=== PATIENT | female | born 1950 | race Two or more races ===

== ENCOUNTER 2017-10-28 20:06 | Emergency (ER) | payer MEDICARE ==
[~2017-10-28] VITALS: Ht 160 cm; Wt 62.6 kg
[2017-10-28] MEDS ORDERED: CALCIUM500 M3 PO (20:16)
[2017-10-28] MEDS ORDERED: VITAMIN D1000 UNI1 ORAL (20:16)
[2017-10-28 20:44] VITALS: BP 110/65
--- NOTE | 2017-10-28 20:52 | Emergency Room Report ---
History of Present Illness General Chief Complaint: Palpitations Source: Patient (Isidoro Ravi M.D.) Present Illness HPI 67-year-old female, no significant past medical history, presenting with left lower extremity pain, for the last 2 weeks, worse in the last 2 days. Denies any trauma. Denies any chest pain or shortness of breath. Denies any history of DVT or PE (Isidoro Ravi M.D.) Allergies: Coded Allergies: No Known Allergies (Unverified , 10/28/17) Patient History Past Medical History: see triage record Past Surgical History: none Pertinent Family History: none Last Menstrual Period: years Now: No : 2 Para: 2 Reviewed Nursing Documentation: PMH: Agreed; PSxH: Agreed (Isidoro Ravi M.D. ) Nursing Documentation-PMH Past Medical History: No History, Except For Hx Cancer: Yes - breast CA left side with mastectomy (Isidoro Ravi M.D.) Review of Systems All Other Systems: negative except mentioned in HPI (Isidoro Ravi M.D.) Physical Exam Vital Signs Date Time Temp Pulse Resp B/P (MAP) Pulse Ox O2 Delivery O2 Flow Rate FiO2 10/28/17 20:10 97.7 66 18 132/61 96 Room Air 97.7 (Isidoro Ravi M.D.) Medical Decision Making Diagnostic Impression: Primary Impression: Acute deep vein thrombosis (DVT) of left peroneal vein ER Course 67-year-old female with left lower EXT pain for 2 weeks Also with intermittent palpitations however a symptomatically at this time DDX: Rule out DVT, no signs of trauma, full range of motion, not concerned with any fracture Low suspicion for ACS, not tachycardic not hypoxic, asymptomatic at this time so low suspicion for PE Plan: Obtain labs, ua, ucx, CXR, EKG Venous study for rule out DVT ER course: Patient has remained stable during ED stay. Disposition: Please note that this Emergency Department Report was dictated using [employer] machine operator technology software, occasionally this can lead to erroneous entry secondary to interpretation by the dictation equipment EKG Diagnostic Results EP Interpretation: Yes Rate: normal Rhythm: NSR ST Segments: T-wave inversion V2 ASA given to patient: No Rhythm Strip EP Interpretation: Yes Rate: 70 Rhythm: NSR, no PVCs, no ectopy Chest X-ray CXR: Ordered: Yes 1 view Indication: Chest pain EP interpretation: Yes Interpretation: No consolidation, no effusion, no PTX, no acute cardiopulmonary disease Impression: No acute disease Electronically signed by Isidoro Ravi MD Laboratory Tests Test 10/28/17 20:35 10/28/17 21:05 White Blood Count 8.0 K/UL (4.8-10.8) Red Blood Count 4.46 M/UL (4.20-5.40) Hemoglobin 13.7 G/DL (12.0-16.0) Hematocrit 41.0 % (37.0-47.0) Mean Corpuscular Volume 92 FL (80-99) Mean Corpuscular Hemoglobin 30.8 PG (27.0-31.0) Mean Corpuscular Hemoglobin Concent 33.5 G/DL (32.0-36.0) Red Cell Distribution Width 11.3 % (11.6-14.8) L Platelet Count 218 K/UL (150-450) Mean Platelet Volume 7.8 FL (6.5-10.1) Neutrophils (%) (Auto) 47.0 % (45.0-75.0) Lymphocytes (%) (Auto) 40.9 % (20.0-45.0) Monocytes (%) (Auto) 7.1 % (1.0-10.0) Eosinophils (%) (Auto) 3.6 % (0.0-3.0) H Basophils (%) (Auto) 1.3 % (0.0-2.0) Sodium Level 138 MMOL/L (136-145) Potassium Level 3.9 MMOL/L (3.5-5.1) Chloride Level 104 MMOL/L (98-107) Carbon Dioxide Level 24 MMOL/L (21-32) Anion Gap 10 mmol/L (5-15) Blood Urea Nitrogen 26 mg/dL (7-18) H Creatinine 0.8 MG/DL (0.55-1.30) Estimate Glomerular Filtration Rate > 60 mL/min (>60) Glucose Level 157 MG/DL (74-106) H Calcium Level 9.1 MG/DL (8.5-10.1) Total Bilirubin 0.4 MG/DL (0.2-1.0) Aspartate Amino Transferase (AST) 16 U/L (15-37) Alanine Aminotransferase (ALT) 28 U/L (12-78) Alkaline Phosphatase 71 U/L (46-116) Troponin I 0.000 ng/mL (0.000-0.056) Pro-B-Type Natriuretic Peptide 48 pg/mL (0-125) Total Protein 7.4 G/DL (6.4-8.2) Albumin 3.9 G/DL (3.4-5.0) Globulin 3.5 g/dL Albumin/Globulin Ratio 1.1 (1.0-2.7) Urine Color Pale yellow Urine Appearance Clear Urine pH 5 (4.5-8.0) Urine Specific Garber 1.020 (1.005-1.035) Urine Protein Negative (NEGATIVE) Urine Glucose (UA) Negative (NEGATIVE) Urine Ketones Negative (NEGATIVE) Urine Occult Blood Negative (NEGATIVE) Urine Nitrite Negative (NEGATIVE) Urine Bilirubin Negative (NEGATIVE) Urine Urobilinogen Normal MG/DL (0.0-1.0) Urine Leukocyte Esterase 3+ (NEGATIVE) H Urine RBC Pending Urine WBC Pending Urine Squamous Epithelial Cells Pending Urine Bacteria Pending (Isidoro Ravi M.D.) ER Course Patient signout to me for left leg pain. Ultrasound showed positive for DVT. I gave her Lovenox. I discussed the case with her son who is a physician. He wanted her to be on Eliquis. (CECE FALCON M.D.) CT/MRI/US Diagnostic Results CT/MRI/US Diagnostic Results : Imaging Test Ordered: US Impression read by machine slat basket maker. Positive for DVT of peroneal vein (CECE FALCON M.D.) Last Vital Signs Date Time Temp Pulse Resp B/P (MAP) Pulse Ox O2 Delivery O2 Flow Rate FiO2 10/28/17 20:44 97.7 71 18 110/65 96 Room Air 97.7 (Isidoro Ravi M.D.) Status: improved (CECE FALCON M.D.) Disposition: HOME, SELF-CARE Condition: Stable Scripts Apixaban (ELIQUIS) 5 Mg Tablet 5 MG PO BID for 30 Days, TAB Prov: CECE FALCON M.D. 10/28/17 Apixaban (ELIQUIS) 5 Mg Tablet 10 MG PO BID for 7 Days, TAB Prov: CECE FALCON M.D. 10/28/17 Referrals: ELIANE COVARRUBIAS (PCP) Additional Instructions: Follow-up with your Dr. 7 days. Return if symptom worsen. Isidoro Ravi M.D. Oct 28, 2017 20:52 CECE FALCON M.D. Oct 28, 2017 22:10
[2017-10-28 21:01] LABS: BASOPHILS % (AUTO) 1.3 % (0.0-2.0); EOSINOPHILS % (AUTO) 3.6 % (0.0-3.0); HEMOGLOBIN 13.7 G/DL (12.0-16.0); LYMPHOCYTES % (AUTO) 40.9 % (20.0-45.0); MEAN CORPUSCULAR VOLUME 92 FL (80-99); MONOCYTES % (AUTO) 7.1 % (1.0-10.0); PLATELET COUNT 218 K/UL (150-450); RED BLOOD COUNT 4.46 M/UL (4.20-5.40); RED CELL DISTRIBUTION WIDTH 11.3 % (11.6-14.8)
[2017-10-28 21:03] LABS: ANION GAP 10 mmol/L (5-15); BLOOD UREA NITROGEN 26 mg/dL (7-18); CALCIUM 9.1 MG/DL (8.5-10.1); CARBON DIOXIDE 24 MMOL/L (21-32); CHLORIDE 104 MMOL/L (98-107); CREATININE 0.8 MG/DL (0.55-1.30); POTASSIUM 3.9 MMOL/L (3.5-5.1); SODIUM 138 MMOL/L (136-145)
[2017-10-28 21:15] LABS: ALANINE AMINOTRANSFERASE 28 U/L (12-78); ALBUMIN 3.9 G/DL (3.4-5.0); ALBUMIN/GLOBULIN RATIO 1.1 (1.0-2.7); ALKALINE PHOSPHATASE 71 U/L (46-116); ASPARTATE AMINO TRANSFERASE 16 U/L (15-37); BILIRUBIN,TOTAL 0.4 MG/DL (0.2-1.0)
[2017-10-28 21:22] LABS: APPEARANCE,URINE CLEAR; BILIRUBIN, URINE NEGATIVE (NEGATIVE); COLOR,URINE PALE YELLOW; GLUCOSE, URINE (UA) NEGATIVE (NEGATIVE); KETONES,URINE NEGATIVE (NEGATIVE); LEUKOCYTE ESTERASE ,URINE 3+ (NEGATIVE); NITRITE,URINE NEGATIVE (NEGATIVE); PH,URINE 5 (4.5-8.0); PROTEIN,URINE NEGATIVE (NEGATIVE); UROBILINOGEN,URINE NORMAL MG/DL (0.0-1.0)
[2017-10-28] MEDS ORDERED: ELIQUIS5 MG PO (22:09)
[2017-10-28] MEDS ORDERED: Enoxaparin 60mg Inj SUBQ ONE (22:15)
[2017-10-28 22:27] VITALS: BP 124/74
--- NOTE | 2017-10-29 12:36 | Diagnostic Imaging Report ---
Indication: Chest pain Technique: One view of the chest Comparison: none Findings: Lungs and pleural spaces are clear. Heart size is normal . Surgical clips project over the left breast and left axilla Impression: No acute process
--- NOTE | 2017-10-29 16:23 | Cardiology Report ---
APPROVED REPORT EKG Measurement Heart [id number] Normal sinus rhythm Possible Left atrial enlargement Low voltage QRS Nonspecific T wave abnormality Abnormal ECG
== END 2017-10-28 22:32 | disposition home or self-care (01) ==
LOC: MERGE 20:31 → EMR 20:31
DX: I82.4Z2 Acute embolism and thrombosis of unspecified deep veins of left distal lower extremity (principal); Z85.3 Personal history of malignant neoplasm of breast; Z90.12 Acquired absence of left breast and nipple
CPT/HCPCS: 36415; 71045; 80053; 81003; 83880; 84484; 85025; 93005; 93971; 96372; 99284; J1650

== ENCOUNTER 2019-02-19 18:34 | Emergency (ER) | payer MEDICARE, BC ==
[~2019-02-19] VITALS: Ht 160 cm; Wt 62.1 kg
[~2019-02-19 18:34] MED LIST: CALCIUM500 M3 PO; ELIQUIS5 MG PO; VITAMIN D1000 UNI1 ORAL
[2019-02-19 18:51] VITALS: BP 122/60
--- NOTE | 2019-02-19 18:52 | NUR ---
ED Nurse Note: Pt came in from home due to L ankle pain and swelling x 3-4 hours. Also c/o L sided neck pain x " a couple of days". Pain 8/10 verna. non-pitting edema. AOx4, VSS. Will cont to monitor.
--- NOTE | 2019-02-19 18:56 | NUR ---
HAND-OFF: Report given to Damon Carlos RN.
--- NOTE | 2019-02-19 19:00 | NUR ---
ED Nurse Note: RECEIVED PATIENT FROM ZACHARY WYMAN. PATIENT RESTING COMFORTABLY IN BED WITH NADJusta SOTOS. AO4.
--- NOTE | 2019-02-19 20:00 | NUR ---
ED Nurse Note: US AT BEDSIDE.
--- NOTE | 2019-02-19 20:10 | NUR ---
ED Nurse Note: BLOOD COLLECTED; SENT DOWN TO LAB.
--- NOTE | 2019-02-19 20:48 | Diagnostic Imaging Report ---
Indication: Left leg pain Technique: Grayscale and duplex images of the left lower extremity veins. Comparison: none Findings: On the left, grayscale and duplex images demonstrate no evidence of intraluminal thrombus. Normal phasic Doppler waveforms. Normal augmentation response. Normal compressibility. No evidence of valvular insufficiency Impression: Negative
[2019-02-19 20:51] LABS: BASOPHILS % (AUTO) 1.4 % (0.0-2.0); EOSINOPHILS % (AUTO) 3.7 % (0.0-3.0); HEMOGLOBIN 14.2 G/DL (12.0-16.0); LYMPHOCYTES % (AUTO) 39.5 % (20.0-45.0); MEAN CORPUSCULAR VOLUME 89 FL (80-99); MONOCYTES % (AUTO) 7.7 % (1.0-10.0); NEUTROPHILS % (AUTO) 47.8 % (45.0-75.0); PLATELET COUNT 212 K/UL (150-450); RED BLOOD COUNT 4.59 M/UL (4.20-5.40); RED CELL DISTRIBUTION WIDTH 10.7 % (11.6-14.8); WHITE BLOOD COUNT 7.9 K/UL (4.8-10.8)
--- NOTE | 2019-02-19 21:02 | Emergency Room Report ---
History of Present Illness General Chief Complaint: Edema Source: Patient Present Illness HPI The patient states that she noted swelling in her left ankle today. She also had some pain in the ankle. She denies injury. She is concerned because she was diagnosed with a DVT 6 months ago and did undergo treatment with Eliquis. She states that she did finish treatment and is no longer on anticoagulation. She states that she also has felt a little lightheaded over the past day. She denies chest pain or shortness of breath. She denies fever or chills. She denies nausea or vomiting. She has no other complaints. Allergies: Coded Allergies: No Known Allergies (Verified , 03/21/10) Patient History Past Medical History: see triage record, other - Hx of DVT Past Surgical History: other - masectomy Social History: Denies: smoking, alcohol use, drug use Now: No Reviewed Nursing Documentation: PMH: Agreed; PSxH: Agreed Nursing Documentation-PMH Past Medical History: No History, Except For Review of Systems All Other Systems: negative except mentioned in HPI Physical Exam Vital Signs Date Time Temp Pulse Resp B/P (MAP) Pulse Ox O2 Delivery O2 Flow Rate FiO2 02/19/19 18:35 98.4 64 17 131/74 (93) 95 Room Air Sp02 EP Interpretation: reviewed, normal General Appearance: no apparent distress, alert, GCS 15, non-toxic Head: normocephalic, atraumatic Eyes: bilateral eye normal inspection, bilateral eye PERRL ENT: hearing grossly normal, normal pharynx, no angioedema, normal voice Neck: full range of motion, supple/symm/no masses Respiratory: chest non-tender, lungs clear, normal breath sounds, no respiratory distress, no retraction, no accessory muscle use, speaking full sentences Cardiovascular #1: regular rate, rhythm, no edema Gastrointestinal: normal bowel sounds, non tender, soft, non-distended, no guarding, no rebound Rectal: deferred Musculoskeletal: back normal, gait/station normal, normal range of motion, non- tender, swelling - Trace swelling of L. ankle. Neurologic: alert, oriented x3, responsive, motor strength/tone normal, sensory intact, speech normal Psychiatric: judgement/insight normal, memory normal, mood/affect normal, no suicidal/homicidal ideation Skin: no rash, warm/dry, well hydrated Medical Decision Making Diagnostic Impression: Primary Impression: Lymphedema ER Course The patient underwent ultrasound of the left lower extremity to rule out DVT. There is no DVT identified. The patient's laboratory work-up is unremarkable. This included CBC, CMP. Overall, this patient's evaluation is benign. At this time, I do not identify an emergency medical condition. The patient is given close return precautions and follow-up instructions. Laboratory Tests Test 02/19/19 20:00 White Blood Count 7.9 K/UL (4.8-10.8) Red Blood Count 4.59 M/UL (4.20-5.40) Hemoglobin 14.2 G/DL (12.0-16.0) Hematocrit 41.0 % (37.0-47.0) Mean Corpuscular Volume 89 FL (80-99) Mean Corpuscular Hemoglobin 31.0 PG (27.0-31.0) Mean Corpuscular Hemoglobin Concent 34.7 G/DL (32.0-36.0) Red Cell Distribution Width 10.7 % (11.6-14.8) L Platelet Count 212 K/UL (150-450) Mean Platelet Volume 6.5 FL (6.5-10.1) Neutrophils (%) (Auto) 47.8 % (45.0-75.0) Lymphocytes (%) (Auto) 39.5 % (20.0-45.0) Monocytes (%) (Auto) 7.7 % (1.0-10.0) Eosinophils (%) (Auto) 3.7 % (0.0-3.0) H Basophils (%) (Auto) 1.4 % (0.0-2.0) Prothrombin Time 9.9 SEC (9.30-11.50) Prothrombin Time INR 0.9 (0.9-1.1) PTT 29 SEC (23-33) Sodium Level 142 MMOL/L (136-145) Potassium Level 3.9 MMOL/L (3.5-5.1) Chloride Level 105 MMOL/L (98-107) Carbon Dioxide Level 29 MMOL/L (21-32) Anion Gap 9 mmol/L (5-15) Blood Urea Nitrogen 21 mg/dL (7-18) H Creatinine 0.9 MG/DL (0.55-1.30) Estimate Glomerular Filtration Rate > 60 mL/min (>60) Glucose Level 95 MG/DL (74-106) Calcium Level 9.6 MG/DL (8.5-10.1) Total Bilirubin 0.7 MG/DL (0.2-1.0) Aspartate Amino Transferase (AST) 26 U/L (15-37) Alanine Aminotransferase (ALT) 27 U/L (12-78) Alkaline Phosphatase 65 U/L (46-116) Total Protein 8.1 G/DL (6.4-8.2) Albumin 4.1 G/DL (3.4-5.0) Globulin 4.0 g/dL Albumin/Globulin Ratio 1.0 (1.0-2.7) Last Vital Signs Date Time Temp Pulse Resp B/P (MAP) Pulse Ox O2 Delivery O2 Flow Rate FiO2 02/19/19 18:51 98.4 60 16 122/60 98 Room Air Status: improved Disposition: HOME, SELF-CARE Condition: Improved Patient Instructions: Peripheral Edema Starr Mcclure DO Feb 19, 2019 21:01
[2019-02-19 21:03] LABS: ANION GAP 9 mmol/L (5-15); BLOOD UREA NITROGEN 21 mg/dL (7-18); CALCIUM 9.6 MG/DL (8.5-10.1); CARBON DIOXIDE 29 MMOL/L (21-32); CHLORIDE 105 MMOL/L (98-107); CREATININE 0.9 MG/DL (0.55-1.30); POTASSIUM 3.9 MMOL/L (3.5-5.1); SODIUM 142 MMOL/L (136-145)
[2019-02-19 21:07] LABS: ALANINE AMINOTRANSFERASE 27 U/L (12-78); ALBUMIN 4.1 G/DL (3.4-5.0); ALKALINE PHOSPHATASE 65 U/L (46-116); ASPARTATE AMINO TRANSFERASE 26 U/L (15-37); BILIRUBIN,TOTAL 0.7 MG/DL (0.2-1.0)
[2019-02-19 21:10] VITALS: BP 123/60
[2019-02-19 21:11] LABS: INR 0.9 (0.9-1.1)
[2019-02-19 21:30] VITALS: BP 123/60
--- NOTE | 2019-02-19 21:30 | NUR ---
ER DISCHARGE NOTE: Patient is cleared to be discharged per ERMD, pt is aox4, on room air, with stable vital signs. pt was given dc and prescription instructions, pt was able to verbalize understanding, pt id band and iv site removed without complications. pt is able to ambulate with steady gait. pt took all belongings.
== END 2019-02-19 21:30 | disposition home or self-care (01) ==
LOC: EMR 21:02
DX: I89.0 Lymphedema, not elsewhere classified (principal)
CPT/HCPCS: 36415; 80053; 85025; 85610; 85730; 93971; 99284